=== PATIENT | female | born 1960 | race Caucasian/White ===

== ENCOUNTER 2019-03-17 06:48 | Emergency (ER) | payer SELFPAY ==
[~2019-03-17] VITALS: Ht 162.6 cm; Wt 68.8 kg
[2019-03-17 07:34] LABS: CLARITY,URINE CLEAR (Clear); COLOR,URINE YELLOW (Yellow); GLUCOSE, URINE NEGATIVE (Neg); KETONES,URINE 15 mg/dl (Neg); LEUKOCYTE ESTERASE ,URINE NEGATIVE (Neg); NITRITES, URINE NEGATIVE (Neg); OCCULT BLOOD,URINE TRACE-INTACT (Neg); PROTEIN,URINE TRACE mg/dl (Neg); UROBILINOGEN,URINE 0.2 E.U/dL (0.2-1.0)
[2019-03-17 07:37] LABS: BASOPHILS # (AUTO) 0.1 X10'3 (0-0.2); BASOPHILS % (AUTO) 0.6 % (0-1); EOSINOPHILS # (AUTO) 0.1 X10'3 (0-0.9); EOSINOPHILS % (AUTO) 0.6 % (0-6); HEMATOCRIT 38.3 % (35.0-45.0); HEMOGLOBIN 13.4 g/dl (12.0-16.0); LYMPHOCYTES # (AUTO) 1.5 X10'3 (1.1-4.8); LYMPHOCYTES % (AUTO) 14.9 % (21-51); MEAN CORPUSCULAR HEMOGLOBIN 33.4 PG (27.0-31.0); MEAN CORPUSCULAR HGB CONC 34.8 g/dL (33.0-36.5); MEAN CORPUSCULAR VOLUME 95.8 FL (78-98); MEAN PLATELET VOLUME 9.5 FL (7.4-10.4); MONOCYTES # (AUTO) 0.7 X10'3 (0-0.9); MONOCYTES % (AUTO) 6.4 % (2-12); NEUTROPHILS % (AUTO) 77.5 % (42-75); PLATELET COUNT 211 X10'3 (140-440); WHITE BLOOD COUNT 10.3 X10'3 (4.5-11.0)
[2019-03-17 07:50] LABS: UA COLLECTION TYPE CLN CATCH MIDSTREAM
[2019-03-17] MEDS ORDERED: metroNIDAZOLE 500mg tablet PO ONE (07:50)
[2019-03-17] MEDS ORDERED: METR-159 PO (07:50)
[2019-03-17] MEDS ORDERED: CIPR-230 PO (07:50)
[2019-03-17] MEDS ORDERED: ciprofloxacin 250mg tablet PO ONE (07:50)
[2019-03-17] MEDS ORDERED: HYDR-4383 PO (07:51)
[2019-03-17 07:52] LABS: BACTERIA,URINE NONE SEEN /HPF (Neg); RBC,URINE 0-2 /HPF (0-2); SQUAMOUS EPITHELIAL CELL,UR FEW /LPF (FEW); WBC,URINE NONE SEEN /HPF (0-4)
[2019-03-17] MEDS ORDERED: ondansetron/PF 4mg/2ml inj IV ONE (07:55)
[2019-03-17 07:57] LABS: ALANINE AMINOTRANSFERASE 34 U/L (12-78); ALBUMIN 3.7 G/DL (3.4-5.0); ALKALINE PHOSPHATASE 87 IU/L (46-116); ANION GAP 13 (8-16); ASPARTATE AMINO TRANSFERASE 23 U/L (10-37); BILIRUBIN,TOTAL 0.7 MG/DL (0.1-1.0); BLOOD UREA NITROGEN 12 MG/DL (7-18); BUN/CREATININE RATIO 18.8 (6.6-38.0); CALCIUM 8.9 MG/DL (8.5-10.1); CHLORIDE 103 MMOL/L (99-107); CREATININE 0.64 MG/DL (0.40-0.90); GLUCOSE 102 MG/DL (70-104); LIPASE 107 U/L (73-393); POTASSIUM 3.9 MMOL/L (3.5-5.1); SODIUM 140 MMOL/L (135-145); TOTAL CARBON DIOXIDE 24.4 MMOL/L (24-32); TOTAL PROTEIN 7.5 G/DL (6.4-8.2); eGFR > 90 ML/MIN
[2019-03-17 08:25] VITALS: BP 132/94
== END 2019-03-17 08:26 | disposition home or self-care (01) ==
LOC: ER 06:49
DX: K57.92 Diverticulitis of intestine, part unspecified, without perforation or abscess without bleeding (principal); Z90.49 Acquired absence of other specified parts of digestive tract; Z88.5 Allergy status to narcotic agent; Z88.1 Allergy status to other antibiotic agents; Z79.2 Long term (current) use of antibiotics; Z79.899 Other long term (current) drug therapy
CPT/HCPCS: 36415; 80053; 81001; 83690; 85025; 85610; 96374; 99283; J2405; J3490

== ENCOUNTER 2019-12-17 00:57 | Emergency (ER) | payer BC ==
[~2019-12-17] VITALS: Ht 165.1 cm; Wt 70.0 kg
[~2019-12-17 00:57] MED LIST: HYDR-4383 PO
[2019-12-17] MEDS ORDERED: normal saline 1000ml 1,000 ML IV ONE (01:19)
[2019-12-17] MEDS ORDERED: ondansetron/PF 4mg/2ml inj IV ONE (01:20)
[2019-12-17] MEDS ORDERED: LIDOcaine Viscous 15ml cup MM ONE (01:20)
[2019-12-17] MEDS ORDERED: normal saline 1000ML IV soln IVB ONE ×2 (01:20→04:10)
[2019-12-17] MEDS ORDERED: mag hydrox/Alum hydrox/simeth 30ml oral suspension PO ONE (01:20)
[2019-12-17] MEDS ORDERED: nitroGLYCERIN 0.2mg/hour patch TD ONE (01:25)
[2019-12-17 01:31] LABS: BASOPHILS # (AUTO) 0.1 X10'3 (0-0.2); BASOPHILS % (AUTO) 0.6 % (0-1); EOSINOPHILS # (AUTO) 0.1 X10'3 (0-0.9); EOSINOPHILS % (AUTO) 0.8 % (0-6); HEMOGLOBIN 14.9 g/dl (12.0-16.0); LYMPHOCYTES # (AUTO) 2.2 X10'3 (1.1-4.8); LYMPHOCYTES % (AUTO) 23.8 % (21-51); MEAN CORPUSCULAR HEMOGLOBIN 33.5 PG (27.0-31.0); MEAN CORPUSCULAR HGB CONC 34.7 g/dL (33.0-36.5); MEAN CORPUSCULAR VOLUME 96.7 FL (78-98); MEAN PLATELET VOLUME 9.7 FL (7.4-10.4); MONOCYTES # (AUTO) 0.5 X10'3 (0-0.9); MONOCYTES % (AUTO) 4.9 % (2-12); NEUTROPHILS # (AUTO) 6.4 X10'3 (1.8-7.7); NEUTROPHILS % (AUTO) 69.9 % (42-75); PLATELET COUNT 240 X10'3 (140-440); RED BLOOD COUNT 4.44 X10'6 (4.20-5.60); RED CELL DISTRIBUTION WIDTH 12.6 % (11.5-14.5); WHITE BLOOD COUNT 9.2 X10'3 (4.5-11.0)
[2019-12-17 01:34] LABS: ALANINE AMINOTRANSFERASE 39 U/L (12-78); ALBUMIN 3.4 G/DL (3.4-5.0); ALBUMIN/GLOBULIN RATIO 0.9 (1.1-1.5); ALKALINE PHOSPHATASE 93 IU/L (46-116); ANION GAP 16 (8-16); ASPARTATE AMINO TRANSFERASE 60 U/L (10-37); BILIRUBIN,TOTAL 0.2 MG/DL (0.1-1.0); BLOOD UREA NITROGEN 11 MG/DL (7-18); BUN/CREATININE RATIO 16.9 (6.6-38.0); CALCIUM 8.6 MG/DL (8.5-10.1); CHLORIDE 107 MMOL/L (99-107); CREATININE 0.65 MG/DL (0.40-0.90); GLUCOSE 110 MG/DL (70-104); POTASSIUM 3.4 MMOL/L (3.5-5.1); SODIUM 143 MMOL/L (135-145); TOTAL CARBON DIOXIDE 19.7 MMOL/L (24-32); TOTAL PROTEIN 7.3 G/DL (6.4-8.2); eGFR > 90 ML/MIN
[2019-12-17 01:37] LABS: LIPASE 561 U/L (73-393); TROPONIN I < 0.04 NG/ML (0.0-0.05)
[2019-12-17 01:41] LABS: PARTIAL THROMBOPLASTIN TIME 27 SECONDS (22-32)
[2019-12-17] MEDS ORDERED: potassium Cl 10 mEq/100mL bag IV ONE (02:15)
[2019-12-17 02:43] LABS: CLARITY,URINE CLEAR (Clear); COLOR,URINE YELLOW (Yellow); GLUCOSE, URINE NEGATIVE (Neg); KETONES,URINE TRACE mg/dl (Neg); LEUKOCYTE ESTERASE ,URINE NEGATIVE (Neg); NITRITES, URINE NEGATIVE (Neg); OCCULT BLOOD,URINE TRACE-INTACT (Neg); PROTEIN,URINE NEGATIVE (Neg); UROBILINOGEN,URINE 0.2 E.U/dL (0.2-1.0)
[2019-12-17 02:44] LABS: UA COLLECTION TYPE CLN CATCH MIDSTREAM
[2019-12-17 02:49] LABS: BACTERIA,URINE 1+ /HPF (Neg); RBC,URINE 0-2 /HPF (0-2); SQUAMOUS EPITHELIAL CELL,UR MANY /LPF (FEW); WBC,URINE 0-4 /HPF (0-4)
[2019-12-17 03:48] VITALS: BP 139/85
[2019-12-17] MEDS ORDERED: morphine 4 MG/ML inj SYRINge IV ONE (04:10)
[2019-12-17] MEDS ORDERED: morphine 2 MG/ML inj. syringe IV PRN (04:10)
[2019-12-17] MEDS ORDERED: ONDA4TAB6 PO (04:21)
== END 2019-12-17 05:54 | disposition home or self-care (01) ==
LOC: ER 00:58
DX: K85.90 Acute pancreatitis without necrosis or infection, unspecified (principal); F10.929 Alcohol use, unspecified with intoxication, unspecified; R06.02 Shortness of breath; R07.2 Precordial pain; R11.10 Vomiting, unspecified; K21.9 Gastro-esophageal reflux disease without esophagitis; I10 Essential (primary) hypertension; F17.200 Nicotine dependence, unspecified, uncomplicated; Z90.89 Acquired absence of other organs; Z90.49 Acquired absence of other specified parts of digestive tract; Z90.710 Acquired absence of both cervix and uterus; Z72.89 Other problems related to lifestyle; Z88.5 Allergy status to narcotic agent; Z88.1 Allergy status to other antibiotic agents; Z79.899 Other long term (current) drug therapy; Y90.7 Blood alcohol level of 200-239 mg/100 ml
CPT/HCPCS: 36415; 71045; 80053; 80320; 81001; 83690; 83735; 84484; 85025; 85610; 85730; 93005; 96361; 96374; 96375; 99285; J2270; J2405; J3480; J7030

== ENCOUNTER 2020-09-15 05:19 | Inpatient (IN) | payer BC ==
[2020-09-08 12:40] LABS: BASOPHILS # (AUTO) 0.1 X10'3 (0-0.2); BASOPHILS % (AUTO) 0.7 % (0-1); EOSINOPHILS # (AUTO) 0.1 X10'3 (0-0.9); EOSINOPHILS % (AUTO) 1.2 % (0-6); LYMPHOCYTES # (AUTO) 1.7 X10'3 (1.1-4.8); LYMPHOCYTES % (AUTO) 23.9 % (21-51); MEAN CORPUSCULAR HEMOGLOBIN 31.9 PG (27.0-31.0); MEAN CORPUSCULAR HGB CONC 33.7 g/dL (33.0-36.5); MEAN CORPUSCULAR VOLUME 94.8 FL (78-98); MEAN PLATELET VOLUME 9.7 FL (7.4-10.4); MONOCYTES # (AUTO) 0.7 X10'3 (0-0.9); MONOCYTES % (AUTO) 9.6 % (2-12); NEUTROPHILS # (AUTO) 4.5 X10'3 (1.8-7.7); NEUTROPHILS % (AUTO) 64.6 % (42-75); PRE OP HEMATOCRIT 38.1 % (35.0-45.0); PRE OP HEMOGLOBIN 12.8 g/dL (12.0-16.0); PRE OP PLATELET COUNT 372 X10'3 (140-440); RED BLOOD COUNT 4.02 X10'6 (4.20-5.60); RED CELL DISTRIBUTION WIDTH 13.1 % (11.5-14.5)
[2020-09-08 12:46] LABS: CLARITY,URINE SLIGHTLY CLOUDY (Clear); COLOR,URINE YELLOW (Yellow); GLUCOSE, URINE NEGATIVE (Neg); KETONES,URINE NEGATIVE (Neg); LEUKOCYTE ESTERASE ,URINE TRACE (Neg); NITRITES, URINE NEGATIVE (Neg); OCCULT BLOOD,URINE NEGATIVE (Neg); PROTEIN,URINE NEGATIVE (Neg); UROBILINOGEN,URINE 0.2 E.U/dL (0.2-1.0)
[2020-09-08 12:48] LABS: UA COLLECTION TYPE CLN CATCH MIDSTREAM
[2020-09-08 12:51] LABS: BACTERIA,URINE FEW /HPF (Neg); MUCUS STRANDS FEW /LPF (Neg); RBC,URINE 0-2 /HPF (0-2); SQUAMOUS EPITHELIAL CELL,UR MANY /LPF (FEW); WBC,URINE 0-4 /HPF (0-4)
[2020-09-08 12:53] LABS: PRE OP PROTIME 10.3 SECONDS (9.0-12.0)
[2020-09-08 12:54] LABS: ALBUMIN 3.4 G/DL (3.4-5.0); ALBUMIN/GLOBULIN RATIO 0.8 (1.1-1.5); ALKALINE PHOSPHATASE 92 IU/L (46-116); BLOOD UREA NITROGEN 12 MG/DL (7-18); BUN/CREATININE RATIO 23.1 (6.6-38.0); CALCIUM 9.8 MG/DL (8.5-10.1); CHLORIDE 96 MMOL/L (99-107); CREATININE 0.52 MG/DL (0.40-0.90); PRE OP ALT 33 U/L (30-65); PRE OP ANION GAP 9 (8-16); PRE OP AST 25 U/L (10-37); PRE OP BILIRUB, TOTAL 0.3 MG/DL (0.0-1.0); PRE OP GLUCOSE 101 MG/DL (70-104); PRE OP POTASSIUM 3.8 MMOL/L (3.4-5.1); PRE OP SODIUM 134 MMOL/L (135-145); TOTAL CARBON DIOXIDE 28.7 MMOL/L (24-32); TOTAL PROTEIN 7.9 G/DL (6.4-8.2); eGFR > 90 ML/MIN
[~2020-09-15] VITALS: Ht 162.6 cm; Wt 71.1 kg
[2020-09-15] VITALS (30 sets, daily range): BP systolic 84–133; BP diastolic 43–99
[~2020-09-15 05:19] MED LIST changes: -HYDR-4383 PO; +HYDR12.55 PO; +OLME40TA18 PO; +ONDA-103 PO; +[UNRECOGNIZED DRUG - OTHER] TP ONE
[2020-09-15] MEDS ORDERED: ceFOXitin 2GM-NS 100mL ADDvant 100 ML IV ONE (05:30)
[2020-09-15] MEDS ORDERED: [UNRECOGNIZED DRUG - OTHER] TP ONE (05:30)
[2020-09-15] MEDS ORDERED: famotidine 20mg tablet PO ONE (05:30)
[2020-09-15] MEDS ORDERED: albuterol 2.5 MG/3 ML nebule NEB ONE (05:30)
[2020-09-15] MEDS ORDERED: LIDOcaine 1% (10mg/ml) 2ml vial ONE (05:37)
[2020-09-15] MEDS ORDERED: metroNIDAZOLE-Flagyl 500mg/NS 100 ML IV ONE (05:45)
[2020-09-15] MEDS: ringers solution, lacted 1,000 ML IV SCH ×2 (06:02→17:37)
[2020-09-15] MEDS ORDERED: BUPIVAcaine/PF 2.5 mg/ml (0.25%) 30ml vial ONE ×2 (06:52→08:06)
[2020-09-15] MEDS ORDERED: rocuronium 10mg/ml inj IV ONE ×2 (07:19→07:23)
[2020-09-15] MEDS ORDERED: sevoflurane 250ml liquid IH ONE (07:19)
[2020-09-15] MEDS ORDERED: midazolam 1 mg/ML 2ml injection ONE (07:22)
[2020-09-15] MEDS ORDERED: fentaNYL /PF 50mcg/ml 5ml ampule ONE (07:23)
[2020-09-15] MEDS ORDERED: propofol inj 20 ML IV ONE (07:23)
[2020-09-15] MEDS ORDERED: dexamethasone sod phosphate 4mg/ml inj. ONE (07:35)
[2020-09-15] MEDS ORDERED: BUPIVACAINE liposomal/PF 13.3 MG/ML vial IM ONE (07:59)
[2020-09-15] MEDS ORDERED: BUPIVAcaine/PF 2.5mg/ml (0.25%) 10ml vial ONE (07:59)
--- NOTE | 2020-09-15 08:16 | NUR ---
VERBAL COVID SCREEN NEG Addendum: 09/15/20 at 6845 by Leena Ross RN Amended: Links added.
[2020-09-15] MEDS ORDERED: ketorolac trometh. 30mg/ml inj. IV ONE (08:35)
[2020-09-15] MEDS ORDERED: morphine 4 MG/ML inj SYRINge IV PRN (08:35)
[2020-09-15] MEDS ORDERED: ringers solution, lacted 1,000 ML IV SCH (08:35)
[2020-09-15] MEDS ORDERED: ondansetron/PF 4mg/2ml inj IV PRN (08:35)
[2020-09-15] MEDS ORDERED: morphine 2 MG/ML inj. syringe IV PRN (08:35)
[2020-09-15] MEDS ORDERED: meperidine/PF 25mg/ml syringe IV PRN ×3 (08:35)
[2020-09-15] MEDS ORDERED: proCHLORperazine 10 MG/2 ml inj IV PRN (08:35)
[2020-09-15] MEDS ORDERED: ondansetron/PF 4mg/2ml inj ONE (10:19)
[2020-09-15] MEDS ORDERED: glycopyrrolate 0.2mg/ml inj ONE (10:20)
[2020-09-15] MEDS ORDERED: neostigmine methylsulfate 1 MG/ML 10ml vial ONE (10:20)
[2020-09-15] MEDS ORDERED: naloxone 0.4 mg/ml inj IV PRN ×2 (10:25→12:10)
[2020-09-15] MEDS ORDERED: CADD PCA waste documentation MC PRN (10:25)
--- NOTE | 2020-09-15 10:55 | NUR ---
Received from OR via BED , accompanied by Anesthesiologist DR BLOOD and report given by Anesthesiologist, PATIENT WAKING UP, C/O SEVERE PAIN AND NAUSEA - ZOFRAN GIVEN IN OR, DEMEROL 25MG IV GIVEN UPON ARRIVAL D/T PAIN. V/S WNL, CSM INTACT, ABDOMEN INCISION COVERED WITH WOUND VAC AT 125MMHG SUCTION-CDI NO DRAINAGE IN TUBING, SCDS ON, 20G PIV TO LUE, F/C DRAINING CLEAR YELLOW URINE.
[2020-09-15] MEDS ORDERED: HYDROmorphone/NS 1 mg/ml CADD 50 ML IV SCH (11:00)
[2020-09-15] MEDS ORDERED: acetaminophen 1,000mg/100ml IV 100 ML IV ONE (11:05)
[2020-09-15] MEDS ORDERED: piperacillin/tazo 3.375gm/50ml 50 ML IV SCH (12:00)
[2020-09-15] MEDS: HYDROmorphone/NS 1 mg/ml CADD 50 ML IV SCH ×7 (12:29→23:00)
--- NOTE | 2020-09-15 14:07 | NUR ---
received report from VIRIDIANA Soliman. waiting for patient arrival to room 345B.
--- NOTE | 2020-09-15 14:15 | NUR ---
PATIENT A&OX4, PAIN UNDER BETTER CONTROL NOW 12/09 - PT USING DIL CADD (0.2MG Q10") APPROPRIATELY, GIVEN IV COMPAZINE FOR BOUT OF NAUSEA-NOW RESOLVED, V/S WNL, NEUROVASCULAR CHECKS INTACT, 20G PIV LUE - LR RUNNING ALONG WITH ZOSYN, SCDS ON, WOUND VAC ATTACHED TO ABD INCISION-SXN 125MMHG, F/C-DRAINING YELLOW URINE, BELONGS AND PT TAKEN IN BED TO ROOM 345B, REPORT CALED TO EFFIE KEMP. PT HOOKED UP TO VS MACHINE, CALL LIGHT IN REACH, BED LOW AND LOCKED. .
[2020-09-15] MEDS: ondansetron 4mg rapidly disintigrating tab PO PRN (17:35)
--- NOTE | 2020-09-15 18:36 | NUR ---
Problems reprioritized. Patient report given, questions answered & plan of care reviewed with VIRIDIANA Pierre.
--- NOTE | 2020-09-15 19:16 | NUR ---
Patient in room [facility] 345. I have received report from Chavez KEMP and Bj KEMP and had the opportunity to ask questions and assume patient care.
[2020-09-15] MEDS ORDERED: piperacillin/tazo 3.375gm/50ml 50 ML IV ONE (20:00)
[2020-09-15] MEDS: sennosides/docusate sodium tablet PO SCH (20:52)
[2020-09-15] MEDS: docusate sod 100mg capsule PO SCH (20:53)
[2020-09-16] VITALS (7 sets, daily range): BP systolic 98–127; BP diastolic 52–67
[2020-09-16] MEDS: HYDROmorphone/NS 1 mg/ml CADD 50 ML IV SCH ×12 (01:00→23:00)
[2020-09-16] MEDS: ondansetron 4mg rapidly disintigrating tab PO PRN ×3 (02:39→19:39)
--- NOTE | 2020-09-16 06:32 | NUR ---
Problems reprioritized. Patient report given, questions answered & plan of care reviewed with Queta KEMP.
[2020-09-16] MEDS: HYDROchlorothiazide 12.5mg capsule PO SCH (07:50)
[2020-09-16] MEDS: sennosides/docusate sodium tablet PO SCH ×2 (07:50→19:39)
[2020-09-16] MEDS: docusate sod 100mg capsule PO SCH ×2 (07:50→19:39)
[2020-09-16] MEDS: losartan 50mg tablet PO SCH (09:12)
--- NOTE | 2020-09-16 11:42 | NUR ---
Walked with patient about 100feet in hallway, patient reported some feelings of dizziness.
[2020-09-16 13:58] LABS: BASOPHILS % (AUTO) 0.2 % (0-1); EOSINOPHILS # (AUTO) 0.1 X10'3 (0-0.9); EOSINOPHILS % (AUTO) 0.3 % (0-6); HEMOGLOBIN 10.1 g/dl (12.0-16.0); LYMPHOCYTES # (AUTO) 1.5 X10'3 (1.1-4.8); MEAN CORPUSCULAR HEMOGLOBIN 31.8 PG (27.0-31.0); MEAN CORPUSCULAR HGB CONC 33.7 g/dL (33.0-36.5); MEAN CORPUSCULAR VOLUME 94.4 FL (78-98); MEAN PLATELET VOLUME 8.8 FL (7.4-10.4); MONOCYTES # (AUTO) 0.3 X10'3 (0-0.9); MONOCYTES % (AUTO) 1.5 % (2-12); NEUTROPHILS # (AUTO) 16.4 X10'3 (1.8-7.7); PLATELET COUNT 283 X10'3 (140-440); RED BLOOD COUNT 3.18 X10'6 (4.20-5.60); RED CELL DISTRIBUTION WIDTH 13.4 % (11.5-14.5); WHITE BLOOD COUNT 18.2 X10'3 (4.5-11.0)
[2020-09-16 14:14] LABS: ALANINE AMINOTRANSFERASE 40 U/L (12-78); ALBUMIN 2.9 G/DL (3.4-5.0); ALBUMIN/GLOBULIN RATIO 0.8 (1.1-1.5); ALKALINE PHOSPHATASE 65 IU/L (46-116); ANION GAP 9 (8-16); ASPARTATE AMINO TRANSFERASE 64 U/L (10-37); BILIRUBIN,TOTAL 0.6 MG/DL (0.1-1.0); BLOOD UREA NITROGEN 15 MG/DL (7-18); BUN/CREATININE RATIO 18.3 (6.6-38.0); CALCIUM 7.9 MG/DL (8.5-10.1); CHLORIDE 95 MMOL/L (99-107); CREATININE 0.82 MG/DL (0.40-0.90); GLUCOSE 115 MG/DL (70-104); POTASSIUM 3.5 MMOL/L (3.5-5.1); SODIUM 129 MMOL/L (135-145); TOTAL CARBON DIOXIDE 25.2 MMOL/L (24-32); TOTAL PROTEIN 6.5 G/DL (6.4-8.2); eGFR 72 ML/MIN
--- NOTE | 2020-09-16 15:14 | NUR ---
Patient urine leaking out continously from the sofia catheter, there was order to d/c it so the sofia catheter was deflated and discontinued.
--- NOTE | 2020-09-16 16:21 | NUR ---
Per patient statement, she was offered the Doxycycline paste trial for the wound in the OR but she had told the OR crew that she is allergic to tetracycline so she did not received it. When I asked patient about what type of reaction she had with Tetracycline, she said it was vomiting and rash. Charge nurse Daina notified about this.
[2020-09-16] MEDS: piperacillin/tazo 3.375gm/50ml 50 ML IV SCH (16:27)
[2020-09-16] MEDS: potassium Cl 20mEq in NS 1,000 ML IV SCH (16:28)
--- NOTE | 2020-09-16 18:30 | NUR ---
Problems reprioritized. Patient report given, questions answered & plan of care reviewed with Prudence RN.
--- NOTE | 2020-09-16 18:38 | NUR ---
Patient in room MED 318. I have received report from SARAH KEMP and had the opportunity to ask questions and assume patient care. Pattiet is resting and shows no sign of distress. Will continue to monitor.
[2020-09-16] MEDS: enoxaparin 40mg/0.4ml syringe SUBCUT SCH (19:40)
[2020-09-17] MEDS: potassium Cl 20mEq in NS 1,000 ML IV SCH ×4 (00:04→23:55)
[2020-09-17] MEDS: piperacillin/tazo 3.375gm/50ml 50 ML IV SCH ×3 (00:05→16:32)
[2020-09-17] MEDS: HYDROmorphone/NS 1 mg/ml CADD 50 ML IV SCH ×12 (01:00→23:00)
[2020-09-17] MEDS: ondansetron 4mg rapidly disintigrating tab PO PRN ×3 (01:52→19:20)
[2020-09-17 06:11] LABS: BASOPHILS % (AUTO) 0.1 % (0-1); EOSINOPHILS # (AUTO) 0.1 X10'3 (0-0.9); EOSINOPHILS % (AUTO) 0.4 % (0-6); HEMATOCRIT 27.3 % (35.0-45.0); HEMOGLOBIN 9.4 g/dl (12.0-16.0); LYMPHOCYTES # (AUTO) 1.3 X10'3 (1.1-4.8); LYMPHOCYTES % (AUTO) 6.8 % (21-51); MEAN CORPUSCULAR HEMOGLOBIN 32.3 PG (27.0-31.0); MEAN CORPUSCULAR HGB CONC 34.6 g/dL (33.0-36.5); MEAN CORPUSCULAR VOLUME 93.4 FL (78-98); MEAN PLATELET VOLUME 9.3 FL (7.4-10.4); MONOCYTES # (AUTO) 0.4 X10'3 (0-0.9); NEUTROPHILS # (AUTO) 16.8 X10'3 (1.8-7.7); NEUTROPHILS % (AUTO) 90.7 % (42-75); PLATELET COUNT 261 X10'3 (140-440); RED BLOOD COUNT 2.92 X10'6 (4.20-5.60); RED CELL DISTRIBUTION WIDTH 13.2 % (11.5-14.5); WHITE BLOOD COUNT 18.6 X10'3 (4.5-11.0)
[2020-09-17 06:28] LABS: ALANINE AMINOTRANSFERASE 39 U/L (12-78); ALBUMIN 2.6 G/DL (3.4-5.0); ALBUMIN/GLOBULIN RATIO 0.7 (1.1-1.5); ALKALINE PHOSPHATASE 66 IU/L (46-116); ANION GAP 11 (8-16); ASPARTATE AMINO TRANSFERASE 76 U/L (10-37); BILIRUBIN,TOTAL 0.5 MG/DL (0.1-1.0); BLOOD UREA NITROGEN 10 MG/DL (7-18); BUN/CREATININE RATIO 13.5 (6.6-38.0); CHLORIDE 95 MMOL/L (99-107); CREATININE 0.74 MG/DL (0.40-0.90); GLUCOSE 104 MG/DL (70-104); POTASSIUM 3.6 MMOL/L (3.5-5.1); SODIUM 129 MMOL/L (135-145); TOTAL CARBON DIOXIDE 22.6 MMOL/L (24-32); TOTAL PROTEIN 6.5 G/DL (6.4-8.2); eGFR 81 ML/MIN
--- NOTE | 2020-09-17 06:29 | NUR ---
Problems reprioritized. Patient report given, questions answered & plan of care reviewed with CAREY KEMP.
--- NOTE | 2020-09-17 06:32 | NUR ---
Patient in room MED 318. I have received report from VIRIDIANA JAMES and had the opportunity to ask questions and assume patient care.
[2020-09-17 06:49] LABS: TOTAL CELLS COUNTED 100
[2020-09-17 06:50] LABS: PLATELET ESTIMATE NORMAL
[2020-09-17] MEDS: HYDROchlorothiazide 12.5mg capsule PO SCH (07:33)
[2020-09-17] MEDS: sennosides/docusate sodium tablet PO SCH ×2 (07:33→19:22)
[2020-09-17] MEDS: losartan 50mg tablet PO SCH (07:35)
[2020-09-17] MEDS: docusate sod 100mg capsule PO SCH ×2 (07:36→19:22)
[2020-09-17 08:00] VITALS: BP 112/59
--- NOTE | 2020-09-17 09:37 | NUR ---
Pt c/o 01/08 pain. Dilaudid CADD increased prior dressing change to 0.30. Brianne RN rechecked setting.
[2020-09-17 12:00] VITALS: BP 114/74
[2020-09-17] MEDS: ondansetron/PF 4mg/2ml inj IV PRN ×2 (15:21→22:35)
[2020-09-17 18:00] VITALS: BP 106/71
--- NOTE | 2020-09-17 18:00 | NUR ---
Patient in room MED 318. I have received report from Samia KEMP and had the opportunity to ask questions and assume patient care.
--- NOTE | 2020-09-17 18:33 | NUR ---
Problems reprioritized. Patient report given, questions answered & plan of care reviewed with VIRIDIANA Vaughan.
[2020-09-17] MEDS: enoxaparin 40mg/0.4ml syringe SUBCUT SCH (19:21)
[2020-09-17] MEDS: lactobacillus rhamnosus 10,000 MMU CELLS/CAPSULE PO SCH (19:22)
[2020-09-17 22:00] VITALS: BP 103/68
[2020-09-18] MEDS: piperacillin/tazo 3.375gm/50ml 50 ML IV SCH ×4 (00:16→23:32)
[2020-09-18] MEDS: HYDROmorphone/NS 1 mg/ml CADD 50 ML IV SCH ×12 (01:00→23:00)
[2020-09-18 02:00] VITALS: BP 102/62
[2020-09-18] MEDS: ondansetron/PF 4mg/2ml inj IV PRN ×2 (05:15→18:28)
--- NOTE | 2020-09-18 05:57 | NUR ---
Patient in room MED 318. I have received report from CARLIE KEMP and had the opportunity to ask questions and assume patient care. Addendum: 09/18/20 at 0601 by Alexus Marsh RN Problems reprioritized. Patient report given, questions answered & plan of care reviewed with CARLIE KEMP.
[2020-09-18 06:00] VITALS: BP 108/69
[2020-09-18 06:16] LABS: ALBUMIN 2.3 G/DL (3.4-5.0); ANION GAP 11 (8-16); BLOOD UREA NITROGEN 5 MG/DL (7-18); BUN/CREATININE RATIO 8.9 (6.6-38.0); CALCIUM 8.4 MG/DL (8.5-10.1); CHLORIDE 93 MMOL/L (99-107); CREATININE 0.56 MG/DL (0.40-0.90); GLUCOSE 84 MG/DL (70-104); SODIUM 129 MMOL/L (135-145); TOTAL CARBON DIOXIDE 25.3 MMOL/L (24-32); eGFR > 90 ML/MIN
[2020-09-18 06:17] LABS: BASOPHILS % (AUTO) 0.3 % (0-1); EOSINOPHILS # (AUTO) 0.1 X10'3 (0-0.9); EOSINOPHILS % (AUTO) 0.7 % (0-6); HEMATOCRIT 25.7 % (35.0-45.0); HEMOGLOBIN 8.8 g/dl (12.0-16.0); LYMPHOCYTES # (AUTO) 1.1 X10'3 (1.1-4.8); LYMPHOCYTES % (AUTO) 8.3 % (21-51); MEAN CORPUSCULAR HEMOGLOBIN 31.9 PG (27.0-31.0); MEAN CORPUSCULAR HGB CONC 34.2 g/dL (33.0-36.5); MEAN CORPUSCULAR VOLUME 93.2 FL (78-98); MEAN PLATELET VOLUME 9.2 FL (7.4-10.4); MONOCYTES # (AUTO) 0.4 X10'3 (0-0.9); MONOCYTES % (AUTO) 3.2 % (2-12); NEUTROPHILS % (AUTO) 87.5 % (42-75); PLATELET COUNT 249 X10'3 (140-440); RED BLOOD COUNT 2.76 X10'6 (4.20-5.60); RED CELL DISTRIBUTION WIDTH 13.2 % (11.5-14.5); WHITE BLOOD COUNT 13.7 X10'3 (4.5-11.0)
--- NOTE | 2020-09-18 06:41 | NUR ---
CRITICAL POTASSIUM CALLED TO DR. GONZALEZ, POTASSIUM LEVEL 3.0. PATIENT RECEIVING 20 MEQ POTASSIUM IN NS AT 125 ML/HR. PATIENT HAS HAD CONSIDERABLE NG OUTPUT, 2400 SINCE NG INSERTION AT 2100 09/17 AND I HAVE KEPT PATIENT ON ICE CHIPS UNTIL FURTHER EVALUATION BY DR. CARREON. INFORMED DAY SHIFT VIRIDIANA SEXTON THAT OUTPUT NEEDS TO BE ADDRESSED INTERMS OF AMOUNT, AND CLARIFY DIET ORDERS IF BOWEL REST IS ADVISED BY MD. JOSEHP KEMP
--- NOTE | 2020-09-18 06:45 | NUR ---
Patient in room MED 318. I have received report from Alexus KEMP and had the opportunity to ask questions and assume patient care.
[2020-09-18] MEDS ORDERED: magnesium Cl slow-release 64mg tablet PO PRN (06:55)
[2020-09-18] MEDS ORDERED: magnesium 4gm in 100ml NS 100 ML IV PRN (06:55)
[2020-09-18] MEDS ORDERED: potassium Cl 20 mEq SR tablet PO PRN ×2 (06:55)
--- NOTE | 2020-09-18 07:02 | NUR ---
CALLED MD CARREON TO REPORT LARGE NG OUTPUT OF APPROXIMATELY 240 2100 09/23; INFORMED HIM THAT SHE HAS CRIT K OF 3.0, CALLED KITLIAK TO GET REPLACEMENT ORDERS. ICE CHIPS AND POPSICLES ONLY, PASSED ON TO DAY SHIFT VIRIDIANA SEXTON. LAURI SAID HE WOULD ROUND ON PATIENT THIS AM. JOSEPH KEMP
[2020-09-18] MEDS: potassium Cl 20mEq in NS 1,000 ML IV SCH ×2 (07:55→11:27)
[2020-09-18] MEDS: HYDROchlorothiazide 12.5mg capsule PO SCH (08:00)
[2020-09-18] MEDS: docusate sod 100mg capsule PO SCH ×2 (08:00→20:00)
[2020-09-18] MEDS: losartan 50mg tablet PO SCH (08:00)
[2020-09-18] MEDS: lactobacillus rhamnosus 10,000 MMU CELLS/CAPSULE PO SCH ×2 (08:00→20:00)
[2020-09-18] MEDS: sennosides/docusate sodium tablet PO SCH ×2 (08:00→20:00)
[2020-09-18] MEDS: K and/or MAG REPLACEMENT MC SCH ×2 (08:00→20:00)
--- NOTE | 2020-09-18 08:27 | NUR ---
NEW 22 G PIV STARTED ON PT. L AC. PT TOLERATED WELL, DRESSING CDI, FLUSHES EASILY.
[2020-09-18 08:37] LABS: MAGNESIUM 1.8 MG/DL (1.5-2.4)
[2020-09-18] MEDS: potassium Cl 40MEQ/1/2NS 520ml 520 ML IV PRN (08:50)
--- NOTE | 2020-09-18 09:00 | NUR ---
0800 PO MEDS HELD: COLACE, LOSARTAN, HYDROCHLORATHIAZIDE, CULTERELLE, HAMIDA - DR CARREON AWARE, WILL CONTINUE TO MONITOR. Addendum: 09/18/20 at 1558 by Eleanor Cuba RN PO MEDS HELD DUE TO PT NPO WITH NGT TO CONTINUOUS SUCTION
[2020-09-18 11:00] VITALS: BP 122/76
--- NOTE | 2020-09-18 14:16 | NUR ---
DR DARNELL AT PT'S BESIDE, REPORT GIVEN RE: NGT OUTPUT 850CC GREEN LIQUID OUT [id number], VS REVIEWED, POTASSIUM REPLACED PER PROTOCOL, ABD WOUND/WOUND VAC, PIV FLUIDS ON NOCS AND START OF SHIFT WERE RUNNING TKO INSTEAD OF 125CC/HR ORDERED. PER MD, CONTINUE NGT TO LOW CONTINUOUS SUCTION, PT INTAKE ICE AND POPCYCLES ONLY.WILL CONTINUE TO MONITOR.
[2020-09-18 15:00] VITALS: BP 118/77
[2020-09-18 18:00] VITALS: BP 119/76
--- NOTE | 2020-09-18 18:00 | NUR ---
Patient in room MED 318. I have received report from CARLIE KEMP and had the opportunity to ask questions and assume patient care.
--- NOTE | 2020-09-18 18:30 | NUR ---
Problems reprioritized. Patient report given, questions answered & plan of care reviewed with Alexus KEMP.
[2020-09-18] MEDS: CADD PCA waste documentation MC PRN (19:27)
[2020-09-18] MEDS: enoxaparin 40mg/0.4ml syringe SUBCUT SCH (20:51)
[2020-09-18 22:00] VITALS: BP 115/72
[2020-09-19] MEDS: HYDROmorphone/NS 1 mg/ml CADD 50 ML IV SCH ×12 (01:00→23:00)
[2020-09-19 02:00] VITALS: BP 117/68
[2020-09-19] MEDS: potassium Cl 20mEq in NS 1,000 ML IV SCH ×4 (04:20→23:57)
[2020-09-19 06:00] VITALS: BP 110/54
--- NOTE | 2020-09-19 06:07 | NUR ---
Problems reprioritized. Patient report given, questions answered & plan of care reviewed with LUCI KEMP.
--- NOTE | 2020-09-19 06:15 | NUR ---
Patient in room MED 318. I have received report from adonay smith and had the opportunity to ask questions and assume patient care.
[2020-09-19 06:19] LABS: MAGNESIUM 1.7 MG/DL (1.5-2.4); POTASSIUM 3.5 MMOL/L (3.5-5.1)
[2020-09-19 06:26] LABS: BASOPHILS % (AUTO) 0.3 % (0-1); EOSINOPHILS # (AUTO) 0.1 X10'3 (0-0.9); EOSINOPHILS % (AUTO) 0.5 % (0-6); HEMATOCRIT 25.8 % (35.0-45.0); HEMOGLOBIN 8.7 g/dl (12.0-16.0); LYMPHOCYTES # (AUTO) 0.9 X10'3 (1.1-4.8); LYMPHOCYTES % (AUTO) 7.8 % (21-51); MEAN CORPUSCULAR HGB CONC 33.8 g/dL (33.0-36.5); MEAN CORPUSCULAR VOLUME 94.9 FL (78-98); MEAN PLATELET VOLUME 9.1 FL (7.4-10.4); MONOCYTES # (AUTO) 0.7 X10'3 (0-0.9); MONOCYTES % (AUTO) 5.8 % (2-12); NEUTROPHILS # (AUTO) 10.4 X10'3 (1.8-7.7); NEUTROPHILS % (AUTO) 85.6 % (42-75); PLATELET COUNT 311 X10'3 (140-440); RED BLOOD COUNT 2.72 X10'6 (4.20-5.60); RED CELL DISTRIBUTION WIDTH 13.3 % (11.5-14.5); WHITE BLOOD COUNT 12.2 X10'3 (4.5-11.0)
[2020-09-19] MEDS: K and/or MAG REPLACEMENT MC SCH ×2 (08:00→20:00)
[2020-09-19] MEDS: piperacillin/tazo 3.375gm/50ml 50 ML IV SCH ×2 (09:14→16:30)
[2020-09-19] MEDS: HYDROchlorothiazide 12.5mg capsule PO SCH (09:14)
[2020-09-19] MEDS: sennosides/docusate sodium tablet PO SCH ×2 (09:15→19:56)
[2020-09-19] MEDS: lactobacillus rhamnosus 10,000 MMU CELLS/CAPSULE PO SCH ×2 (09:15→19:56)
[2020-09-19] MEDS: losartan 50mg tablet PO SCH (09:15)
[2020-09-19] MEDS: docusate sod 100mg capsule PO SCH ×2 (09:16→19:56)
[2020-09-19 10:00] VITALS: BP 121/75
[2020-09-19 15:00] VITALS: BP 131/79
--- NOTE | 2020-09-19 18:15 | NUR ---
Report received from Rosa KEMP, questions asked and answered care of Irving assumed by myself
--- NOTE | 2020-09-19 18:30 | NUR ---
Problems reprioritized. Patient report given, questions answered & plan of care reviewed with .adonay granger
--- NOTE | 2020-09-19 19:00 | NUR ---
patient insisted she was going to be needing 2 pitchers of water (refuses ice chips of any kind) she will need 2 apple juices and 1 cranberry. I explained the mechanism of an NG tube but she "is a nurse and knows all about that" and is not hearing my instruction. I offered to 'start over' and clamping the NG tube and going back to sips of water. She is compliant, She experiences nausea and zofran was given and instructed to GO BACK to NPO. She seems to be compliant with this idea. will continue to monitor intake as i am able.
[2020-09-19] MEDS: enoxaparin 40mg/0.4ml syringe SUBCUT SCH (19:57)
[2020-09-19] MEDS: ondansetron/PF 4mg/2ml inj IV PRN (21:04)
[2020-09-19 22:00] VITALS: BP 126/75
[2020-09-20] MEDS: piperacillin/tazo 3.375gm/50ml 50 ML IV SCH ×3 (00:38→16:27)
[2020-09-20] MEDS: HYDROmorphone/NS 1 mg/ml CADD 50 ML IV SCH ×12 (01:00→23:00)
[2020-09-20 02:00] VITALS: BP 121/73
[2020-09-20] MEDS: ondansetron/PF 4mg/2ml inj IV PRN ×2 (04:31→19:23)
[2020-09-20 06:00] VITALS: BP 142/86
--- NOTE | 2020-09-20 06:15 | NUR ---
Patient in room MED 318. I have received report from adonay granger and had the opportunity to ask questions and assume patient care.
[2020-09-20 06:24] LABS: MAGNESIUM 1.7 MG/DL (1.5-2.4)
--- NOTE | 2020-09-20 07:03 | NUR ---
pt denies nausea after ng tube clamped all night hypoactive bowel sound throughout, pt states she passed flatus earlier with walking,none now .abd distended ng o[pened to suction with 800 cc dark green drainage returned
[2020-09-20] MEDS: sennosides/docusate sodium tablet PO SCH ×2 (08:00→20:00)
[2020-09-20] MEDS: potassium Cl 20mEq in NS 1,000 ML IV SCH ×3 (08:24→23:55)
[2020-09-20] MEDS: docusate sod 100mg capsule PO SCH ×2 (08:26→19:24)
[2020-09-20] MEDS: lactobacillus rhamnosus 10,000 MMU CELLS/CAPSULE PO SCH ×2 (08:26→19:23)
[2020-09-20] MEDS: HYDROchlorothiazide 12.5mg capsule PO SCH (08:26)
[2020-09-20] MEDS: losartan 50mg tablet PO SCH (08:26)
[2020-09-20] MEDS: K and/or MAG REPLACEMENT MC SCH ×2 (08:27→20:00)
[2020-09-20] MEDS: potassium Cl 40MEQ/1/2NS 520ml 520 ML IV PRN ×2 (09:45→20:03)
--- NOTE | 2020-09-20 14:13 | NUR ---
Intitial: Pt admitted for recurrent diverticulitis s/p open resection sigmoid and descending colon, per MD note. Pt ordered regular diet on 09/17;however error per RN. Noted pt NPO since 09/16 post-op; dietary notified of NPO status. NG tube placed 09/18 for suction r/t increased discomfort; gastric drainage 5783-5571 ml past 3 days per EMR. D/w nurse to cancel regular diet if MD agreeable, RN reported NG tube is clamped only for PO meds, allowed ice chips and popsicles, per surgeon. Pt reports small BM 09/17, though likely inaccurate, as pt manipulating to get more liquids PO per RN. Will continue to monitor for diet advancement and GI function post-op; if anticipated NPO at least 7 days w/o GI function return consider PN to meet nutrient needs. Addendum: 09/20/20 at 1414 by Tuyet [address]ORM [address] Amended: Links added. Addendum: 09/20/20 at 1416 by Tuyet [address] Intitial: Pt admitted for recurrent diverticulitis s/p open resection sigmoid and descending colon, per MD note. Pt ordered regular diet on 09/17;however error per RN. Noted pt NPO since 09/16 post-op; dietary notified of NPO status. NG tube placed 09/18 for suction r/t increased discomfort; gastric drainage 1221-7085 ml past 3 days per EMR. D/w nurse to cancel regular diet if MD agreeable, RN reported NG tube is clamped only for PO meds, allowed ice chips and popsicles, per surgeon. Pt reports small BM 09/17, though likely inaccurate, as pt manipulating to get more liquids PO per RN. Will continue to monitor for diet advancement and GI function post-op; if anticipated NPO at least 7 days w/o GI function return consider PN to meet nutrient needs. Recommend: 1) Advance diet to low residue as medically indicated 2) Routine bowel care 3) Weekly wts 4) If prolonged NPO at least 7 days w/o GI function return, consider PN to meet nutrient needs. 5) Diverticulitis Ed once more appropriate this admit Addendum: 09/20/20 at [address] AFSHIN coello/ internet marketing director note.
--- NOTE | 2020-09-20 18:20 | NUR ---
Problems reprioritized. Patient report given, questions answered & plan of care reviewed with .adonay holguin
[2020-09-20 18:45] VITALS: BP 122/80
--- NOTE | 2020-09-20 19:15 | NUR ---
calmed NG for medications
[2020-09-20] MEDS: enoxaparin 40mg/0.4ml syringe SUBCUT SCH (19:24)
[2020-09-20] MEDS: diatr meglu/diatrizoate 30ml oral sol.-(3 dose) bottle PO SCH (21:05)
--- NOTE | 2020-09-20 22:18 | NUR ---
NG has been clamped since 191 for medications given at 1999, and now gastroview given at 0. zofran given - will continue to monitor for distension and nausea.
--- NOTE | 2020-09-20 23:44 | NUR ---
unclamped ng at 2315. pt sleeping - no distress. ng fluid is green
[2020-09-21] VITALS: BP 138/75
[2020-09-21] MEDS: potassium Cl 40MEQ/1/2NS 520ml 520 ML IV PRN (00:41)
[2020-09-21] MEDS: HYDROmorphone/NS 1 mg/ml CADD 50 ML IV SCH ×12 (00:56→23:00)
[2020-09-21] MEDS: ondansetron/PF 4mg/2ml inj IV PRN ×2 (02:18→17:24)
[2020-09-21 05:42] LABS: BASOPHILS % (AUTO) 0.5 % (0-1); EOSINOPHILS # (AUTO) 0.2 X10'3 (0-0.9); EOSINOPHILS % (AUTO) 1.5 % (0-6); HEMATOCRIT 26.4 % (35.0-45.0); HEMOGLOBIN 8.9 g/dl (12.0-16.0); LYMPHOCYTES # (AUTO) 1.3 X10'3 (1.1-4.8); LYMPHOCYTES % (AUTO) 12.6 % (21-51); MEAN CORPUSCULAR HEMOGLOBIN 31.7 PG (27.0-31.0); MEAN CORPUSCULAR HGB CONC 33.8 g/dL (33.0-36.5); MEAN CORPUSCULAR VOLUME 93.9 FL (78-98); MEAN PLATELET VOLUME 8.5 FL (7.4-10.4); MONOCYTES # (AUTO) 0.8 X10'3 (0-0.9); MONOCYTES % (AUTO) 8.3 % (2-12); NEUTROPHILS # (AUTO) 7.7 X10'3 (1.8-7.7); NEUTROPHILS % (AUTO) 77.1 % (42-75); PLATELET COUNT 386 X10'3 (140-440); RED BLOOD COUNT 2.81 X10'6 (4.20-5.60); RED CELL DISTRIBUTION WIDTH 13.3 % (11.5-14.5)
[2020-09-21 05:56] LABS: ALBUMIN 2.1 G/DL (3.4-5.0); ANION GAP 9 (8-16); BLOOD UREA NITROGEN 3 MG/DL (7-18); BUN/CREATININE RATIO 7.3 (6.6-38.0); CALCIUM 8.6 MG/DL (8.5-10.1); CHLORIDE 98 MMOL/L (99-107); CREATININE 0.41 MG/DL (0.40-0.90); GLUCOSE 94 MG/DL (70-104); MAGNESIUM 1.7 MG/DL (1.5-2.4); POTASSIUM 3.9 MMOL/L (3.5-5.1); SODIUM 135 MMOL/L (135-145); eGFR > 90 ML/MIN
--- NOTE | 2020-09-21 06:12 | NUR ---
reported to days. noted potassium level 3.9 - pt NPO for CT scan.
--- NOTE | 2020-09-21 06:39 | NUR ---
Patient in room MED 318. I have received report from Fanny KEMP and had the opportunity to ask questions and assume patient care.
[2020-09-21 07:00] VITALS: BP 143/79
[2020-09-21] MEDS: losartan 50mg tablet PO SCH (07:31)
[2020-09-21] MEDS: HYDROchlorothiazide 12.5mg capsule PO SCH (07:31)
[2020-09-21] MEDS: diatr meglu/diatrizoate 30ml oral sol.-(3 dose) bottle PO SCH ×2 (07:31→10:23)
[2020-09-21] MEDS: K and/or MAG REPLACEMENT MC SCH ×2 (08:00→20:00)
[2020-09-21] MEDS ORDERED: iohexol 300mg/ml 100ml inj. ONE (09:59)
[2020-09-21] MEDS: potassium Cl 20mEq in NS 1,000 ML IV SCH ×3 (10:23→22:02)
[2020-09-21 11:00] VITALS: BP 132/80
[2020-09-21] MEDS: lactobacillus rhamnosus 10,000 MMU CELLS/CAPSULE PO SCH ×2 (13:55→19:51)
[2020-09-21] MEDS: sennosides/docusate sodium tablet PO SCH ×2 (13:56→19:51)
[2020-09-21] MEDS: docusate sod 100mg capsule PO SCH ×2 (13:56→19:51)
[2020-09-21 15:00] VITALS: BP 136/88
--- NOTE | 2020-09-21 15:04 | NUR ---
Have tried to reach Dr Boyd per phone call to notify him pt's CT scan has resulted. Will continue to monitor.
--- NOTE | 2020-09-21 18:00 | NUR ---
Problems reprioritized. Patient report received, questions answered & plan of care reviewed with VIRIDIANA Garcia.
--- NOTE | 2020-09-21 18:20 | NUR ---
Problems reprioritized. Patient report given, questions answered & plan of care reviewed with Vero Rosen RN.
[2020-09-21 18:30] VITALS: BP_SYST 134; BP_DIAS 18; BP_DIAS 81
[2020-09-21] MEDS: enoxaparin 40mg/0.4ml syringe SUBCUT SCH (19:54)
[2020-09-21 22:00] VITALS: BP 125/75
--- NOTE | 2020-09-22 | NUR ---
Reviewed adn agreed with student nurse Courtney's charting
[2020-09-22] MEDS: ondansetron/PF 4mg/2ml inj IV PRN ×2 (00:23→09:24)
[2020-09-22] MEDS: HYDROmorphone/NS 1 mg/ml CADD 50 ML IV SCH ×10 (01:00→23:00)
[2020-09-22 02:00] VITALS: BP 133/77
[2020-09-22] MEDS: potassium Cl 20mEq in NS 1,000 ML IV SCH ×3 (05:38→21:02)
[2020-09-22 06:00] VITALS: BP 125/74
[2020-09-22 06:07] LABS: MAGNESIUM 1.7 MG/DL (1.5-2.4); POTASSIUM 3.5 MMOL/L (3.5-5.1)
--- NOTE | 2020-09-22 06:20 | NUR ---
Patient in room MED 318. I have received report from VIRIDIANA Pham and had the opportunity to ask questions and assume patient care.
--- NOTE | 2020-09-22 06:30 | NUR ---
Problems reprioritized. Patient report given, questions answered & plan of care reviewed with VIRIDIANA Damian
[2020-09-22] MEDS: docusate sod 100mg capsule PO SCH ×2 (07:46→21:05)
[2020-09-22] MEDS: HYDROchlorothiazide 12.5mg capsule PO SCH (07:47)
[2020-09-22] MEDS: losartan 50mg tablet PO SCH (07:47)
[2020-09-22] MEDS: lactobacillus rhamnosus 10,000 MMU CELLS/CAPSULE PO SCH ×2 (07:47→21:05)
[2020-09-22] MEDS: sennosides/docusate sodium tablet PO SCH ×2 (07:52→21:04)
[2020-09-22] MEDS: K and/or MAG REPLACEMENT MC SCH ×2 (08:00→20:00)
[2020-09-22 10:00] VITALS: BP 147/84
--- NOTE | 2020-09-22 10:30 | NUR ---
Per MD Corley - turn suction off to NG - ok to drink apple juice and call MD with any concerns.
--- NOTE | 2020-09-22 13:33 | NUR ---
Per pt - she is feeling "weird and lathargic". She would like the suction to be turned back on. Called MD - ok to turn back on and continue to monitor.
--- NOTE | 2020-09-22 17:00 | NUR ---
Changed out dilaudid CADD - administered amount 49.8 ml and wasted 0.2 mls. Second RN verification by Yumiko KEMP.
--- NOTE | 2020-09-22 17:00 | NUR ---
Dilaudid CADD reassessment Q2H 1700 43.6ml res vol 169/216 8.8 mg given
[2020-09-22 18:00] VITALS: BP 130/92
--- NOTE | 2020-09-22 18:40 | NUR ---
Problems reprioritized. Patient report given, questions answered & plan of care reviewed with VIRIDIANA Pham.
[2020-09-22] MEDS: enoxaparin 40mg/0.4ml syringe SUBCUT SCH (21:12)
[2020-09-23] MEDS: HYDROmorphone/NS 1 mg/ml CADD 50 ML IV SCH ×12 (01:00→23:00)
[2020-09-23 02:00] VITALS: BP 132/85
[2020-09-23] MEDS: potassium Cl 20mEq in NS 1,000 ML IV SCH ×3 (04:53→21:23)
[2020-09-23 06:00] VITALS: BP 146/88
--- NOTE | 2020-09-23 06:00 | NUR ---
Problems reprioritized. Patient report given, questions answered & plan of care reviewed with VIRIDIANA Damian. Patient stable at transfer of care
--- NOTE | 2020-09-23 06:20 | NUR ---
Patient in room MED 318. I have received report from VIRIDIANA Pham and had the opportunity to ask questions and assume patient care.
[2020-09-23] MEDS: HYDROchlorothiazide 12.5mg capsule PO SCH (07:46)
[2020-09-23] MEDS: lactobacillus rhamnosus 10,000 MMU CELLS/CAPSULE PO SCH ×2 (07:46→21:24)
[2020-09-23] MEDS: docusate sod 100mg capsule PO SCH ×2 (07:47→21:25)
[2020-09-23] MEDS: sennosides/docusate sodium tablet PO SCH ×2 (07:47→21:25)
[2020-09-23] MEDS: losartan 50mg tablet PO SCH (07:47)
[2020-09-23] MEDS: K and/or MAG REPLACEMENT MC SCH ×2 (08:00→20:00)
--- NOTE | 2020-09-23 09:58 | NUR ---
NG tube flushed with Normal saline then air. Removed without problem. Face washed and applied lip balm
[2020-09-23 11:00] VITALS: BP 144/97
--- NOTE | 2020-09-23 14:42 | NUR ---
WOUND VAC EDUCATION PROVIDED BY WOUND CARE 1. Patient instructed to call the Wound Center or their Home Health Agency immediately if: * They notice a change in the color or amount of the fluid in the canister. * Their wound looks more red than usual or has a foul smell. * The skin around their wound looks reddened or irritated. * The dressing feels loose or appears to be loose. * They experience any increase or changes in their pain. * The alarm will not turn off. 2. Patient instructed that they should not be disconnected from suction for more than 2 hours at a time. * If they are not able to get the suction back on, they need to remove the dressing and take all of the foam out of the wound. * Then moisten sterile gauze with normal saline and place on/in the wound. * Change the dressing once a day until arrangements have been made to replace the wound vac dressing. 3. Patient instructed to turn the wound vac machine OFF and call 911 or go to the ED immediately if their canister fills rapidly with blood. 4. If any of these occur while in the hospital tell a nurse immediately. Addendum: 09/23/20 at 1443 by Regine Carvajal RN Amended: Links added.
[2020-09-23 15:00] VITALS: BP 147/95
--- NOTE | 2020-09-23 15:19 | NUR ---
Leta CHOWDHURY Called MD Corley re: shariid CADD set to at 1400 on 09/24/20 - renew? Per , D/C Leta CHOWDHURY at the time of expiration.
--- NOTE | 2020-09-23 15:41 | NUR ---
Reassessment/Divert ED: RD compliance intern visited pt at bedside to give verbal and written education on diverticulitis and diverticulosis. Pt is A/Ox4 and able to advocate for themselves. Pt stated that their diet at home was high in fiber and enjoys vegetables. Provided education for how to transition from a low fiber diet to a high fiber diet over the next few weeks to months. Pt did not have any questions and was provided RD contact information. Pt has been NPO since 09/15 diet advanced to regular today. D/w RN recommendation for low fiber diet. D/w dietary to send a menu so pt can choose foods low in fiber. Per [facility] notes pt abdominal surgical wound is full thickness and wound VAC in place. Last BM was 09/22. Has routine bowel care available. Will continue to monitor for further intervention. Recommend: 1) Diet change to low fiber 2) Monitor need for ONS 3) Routine bowel care 4) Weekly wts Addendum: 09/23/20 at [address] Amended: Links added. Addendum: 09/23/20 at [address] I have reviewed and agree with note by Slubber Hand. Tigist Chaudhary RD
--- NOTE | 2020-09-23 18:30 | NUR ---
Problems reprioritized. Patient report given, questions answered & plan of care reviewed with VIRIDIANA Tenorio.
--- NOTE | 2020-09-23 18:39 | NUR ---
Patient in room MED 318. I have received report from VIRIDIANA Damian and had the opportunity to ask questions and assume patient care.
[2020-09-23] MEDS: ondansetron/PF 4mg/2ml inj IV PRN (21:25)
[2020-09-23] MEDS: enoxaparin 40mg/0.4ml syringe SUBCUT SCH (21:25)
[2020-09-24] VITALS (7 sets, daily range): BP systolic 121–152; BP diastolic 73–92
[2020-09-24] MEDS: HYDROmorphone/NS 1 mg/ml CADD 50 ML IV SCH ×4 (01:00→07:00)
--- NOTE | 2020-09-24 06:32 | NUR ---
Problems reprioritized. Patient report given, questions answered & plan of care reviewed with VIRIDIANA Damian.
--- NOTE | 2020-09-24 06:43 | NUR ---
Patient in room MED 318. I have received report from VIRIDIANA Tenorio and had the opportunity to ask questions and assume patient care.
--- NOTE | 2020-09-24 06:44 | NUR ---
Per MD Arana - once dilaudid CADD expires today at 1400 then add percocet 5mg Q4H PRN for pain. Added order to start at 1500 today.
[2020-09-24] MEDS: sennosides/docusate sodium tablet PO SCH ×2 (08:00→20:00)
[2020-09-24] MEDS: K and/or MAG REPLACEMENT MC SCH ×2 (08:00→20:00)
[2020-09-24] MEDS: docusate sod 100mg capsule PO SCH ×2 (08:54→20:00)
[2020-09-24] MEDS: HYDROchlorothiazide 12.5mg capsule PO SCH (08:54)
[2020-09-24] MEDS: lactobacillus rhamnosus 10,000 MMU CELLS/CAPSULE PO SCH ×2 (08:55→21:42)
[2020-09-24] MEDS: losartan 50mg tablet PO SCH (08:55)
[2020-09-24] MEDS: potassium Cl 20mEq in NS 1,000 ML IV SCH ×3 (13:04→21:43)
[2020-09-24] MEDS: CADD PCA waste documentation MC PRN (14:40)
--- NOTE | 2020-09-24 15:07 | NUR ---
Dilaudid reassessment 0900 res vol 19.6ml, 249/343, 19.8mg given 1100 res vol 18.7ml, 252/346, 20.7mg given 1300 res vol 16.9ml, 258/353, 22.5mg given
[2020-09-24] MEDS: oxyCODONE/APAP 5-325mg tablet PO PRN ×2 (17:57→21:56)
--- NOTE | 2020-09-24 18:00 | NUR ---
Patient in room MED 318. I have received report from RAQUEL KEMP and had the opportunity to ask questions and assume patient care.
--- NOTE | 2020-09-24 18:32 | NUR ---
Problems reprioritized. Patient report given, questions answered & plan of care reviewed with VIRIDIANA Vaughan.
[2020-09-24] MEDS: enoxaparin 40mg/0.4ml syringe SUBCUT SCH (21:43)
[2020-09-24] MEDS: ondansetron/PF 4mg/2ml inj IV PRN (21:50)
[2020-09-25 02:00] VITALS: BP 128/84
[2020-09-25] MEDS: potassium Cl 20mEq in NS 1,000 ML IV SCH (05:09)
[2020-09-25] MEDS: oxyCODONE/APAP 5-325mg tablet PO PRN ×3 (05:13→13:38)
--- NOTE | 2020-09-25 06:29 | NUR ---
Problems reprioritized. Patient report given, questions answered & plan of care reviewed with VIJI CONRAD.
[2020-09-25] MEDS: ondansetron/PF 4mg/2ml inj IV PRN (09:23)
[2020-09-25] MEDS: HYDROchlorothiazide 12.5mg capsule PO SCH (09:28)
[2020-09-25] MEDS: losartan 50mg tablet PO SCH (09:29)
[2020-09-25] MEDS: docusate sod 100mg capsule PO SCH (09:30)
[2020-09-25] MEDS: lactobacillus rhamnosus 10,000 MMU CELLS/CAPSULE PO SCH (09:30)
[2020-09-25] MEDS: sennosides/docusate sodium tablet PO SCH (09:31)
[2020-09-25 11:00] VITALS: BP 126/65
[2020-09-25] MEDS ORDERED: PER5325T PO (13:04)
--- NOTE | 2020-09-25 14:35 | NUR ---
WOUND VAC SWITCHED TO PORTABLE WOUND VAC. PATIENT INSTRUCTED THE USE OF THE PORTABLE WOUND VAC, AND DISCHARGE INSTRUCTIONS GIVEN , PATIENT VERBALIZED UNDERSTANDING. DISCHARGED HOME WITH , ON PORTABLE WOUND VAC, CONDITION STABLE.
== END 2020-09-25 14:34 | disposition home health service (06) | DRG 330 ==
LOC: UNDOADMIN 05:19 → PAS IN 05:19 → EDSTATUS 07:30 → PAS IN 12:57 → UNDOADMIN 12:57 → SUR 3N 14:35 → PAS IN 14:35 → MED 3N 09-16 17:20 → SUR 3N 09-16 17:20
PROVIDERS: ADMIT Surgery; ATTEND Surgery
PROC: 0DNU4ZZ Release Omentum, Percutaneous Endoscopic Approach (ICD-10-PCS; 2020-09-15)
PROC: 0DJD4ZZ Inspection of Lower Intestinal Tract, Percutaneous Endoscopic Approach (ICD-10-PCS; 2020-09-15)
PROC: 0T788DZ Dilation of Bilateral Ureters with Intraluminal Device, Via Natural or Artificial Opening Endoscopic (ICD-10-PCS; 2020-09-15)
PROC: 0DTN0ZZ Resection of Sigmoid Colon, Open Approach (ICD-10-PCS; principal; 2020-09-15 07:19)
PROC: 0DNW4ZZ Release Peritoneum, Percutaneous Endoscopic Approach (ICD-10-PCS; 2020-09-15 07:19)
PROC: 0D9670Z Drainage of Stomach with Drainage Device, Via Natural or Artificial Opening (ICD-10-PCS; 2020-09-17)
PROC: BW251ZZ Computerized Tomography (CT Scan) of Chest, Abdomen and Pelvis using Low Osmolar Contrast (ICD-10-PCS; 2020-09-21)
DX: K57.32 Diverticulitis of large intestine without perforation or abscess without bleeding (principal); K56.699 Other intestinal obstruction unspecified as to partial versus complete obstruction; F17.210 Nicotine dependence, cigarettes, uncomplicated; I10 Essential (primary) hypertension; K66.0 Peritoneal adhesions (postprocedural) (postinfection); Z53.31 Laparoscopic surgical procedure converted to open procedure; Z83.3 Family history of diabetes mellitus; Z90.710 Acquired absence of both cervix and uterus; Z90.49 Acquired absence of other specified parts of digestive tract; Z88.5 Allergy status to narcotic agent; Z88.8 Allergy status to other drugs, medicaments and biological substances
CPT/HCPCS: Z7506; Z7508; 36415; 71260; 74018; 74177; 76000; 80048; 80053; 81001; 82948; 83735; 84132; 85007; 85025; 85610; 85730; 86885; 86900; 86901; 87081; 87635; 93005; 94668; A4215; A4355; A4618; A6550; A7000; C1758; C1769; C9290; G0378; J0131; J0694; J0780; J1100; J1170; J1650; J1885; J2001; J2175; J2250; J2405; J2543; J2704; J2710; J3010; J3480; J3490; J7120; Q9963; Q9967

== ENCOUNTER → 2021-01-28 | Emergency (ER) | payer BC ==
[~2021-01-28] VITALS: Ht 162.6 cm; Wt 69.5 kg
[~2021-01-28] MED LIST changes: +PER5325T PO; -[UNRECOGNIZED DRUG - OTHER] TP ONE
[2021-01-28 11:56] VITALS: BP 144/78
--- NOTE | 2021-01-28 18:49 | NUR ---
Spoke with pt. via phone. Pt. left for home d/t long wait in the ED. States that she will just wait for her PCP appointment and have imaging done in an outpatient setting. Pt. was advised that should her condition change, to come back to the ED.
== END | disposition left against medical advice (07) ==
LOC: ER 11:48
DX: Z98.890 Other specified postprocedural states (principal); Z53.21 Procedure and treatment not carried out due to patient leaving prior to being seen by health care provider